=== PATIENT | female | born 1980 | race Caucasian/White ===

== ENCOUNTER 2017-06-15 20:43 | Emergency (ER) | payer SELFPAY ==
[~2017-06-15 20:43] MED LIST: ACETAMINOPHEN/O1 TA3 PO; ADVAIR DISKUS 51 AER INH; CLONAZEPAM0.5 MG PO; COL100 PO; CYMBALTA60 M1 PO; ECO81 PO; MACROBID100 MG PO; METFORMIN HCL850 MG PO; MEV20 PO; NOR10T PO; PREVACID30 MG PO; TRAZODONE100 MG PO; VENTOLIN H0.09 MG/A1 INH
[2017-06-15 22:30] VITALS: BP 114/70
== END 2017-06-15 22:30 | disposition home or self-care (01) ==
LOC: ED 20:43
DX: S43.402A Unspecified sprain of left shoulder joint, initial encounter (principal); J45.909 Unspecified asthma, uncomplicated; Z88.2 Allergy status to sulfonamides; Z88.0 Allergy status to penicillin; Z88.8 Allergy status to other drugs, medicaments and biological substances; W17.89XA Other fall from one level to another, initial encounter; Y93.89 Activity, other specified; Y92.89 Other specified places as the place of occurrence of the external cause; Y99.8 Other external cause status
CPT/HCPCS: Q0092